=== PATIENT | male | born 1970 | race Caucasian/White ===

== ENCOUNTER 2018-08-04 10:39 | Emergency (ER) | payer MEDICAID ==
[2018-08-04] MEDS: ONDANSETRON (ODT) 4 MG TAB ODT (11:11)
[2018-08-04] MEDS: morphine 4 MG/ML VIAL IM (11:11)
[2018-08-04] MEDS: LIDOCAINE 1% (MDV) 20 ML INJ SC (11:14)
[2018-08-04] MEDS: BACITRACIN 0.9 GM OINT TOP (13:41)
[2018-08-04] MEDS: DIPHTH/TET/ACEL PERTUSS (ADULT) 0.5 ML VIAL IM* (13:42)
== END 2018-08-04 13:46 | disposition home or self-care (01) ==
LOC: FTE 10:39
DX: S61.215A Laceration without foreign body of left ring finger without damage to nail, initial encounter (principal); W31.2XXA Contact with powered woodworking and forming machines, initial encounter; Y92.9 Unspecified place or not applicable; Z23 Encounter for immunization
CPT/HCPCS: 12002; 73130-RT; 90471; 90715; 96372; 99284-25

== ENCOUNTER 2018-08-06 11:53 | Emergency (ER) | payer MEDICAID | END 2018-08-06 13:50 | disposition left against medical advice (07) | LOC: FTE 11:53 | DX: Z48.01 Encounter for change or removal of surgical wound dressing (principal); F17.210 Nicotine dependence, cigarettes, uncomplicated | CPT/HCPCS: 99281; Z7502 ==